=== PATIENT | female | born 1990 | race African-American/Black ===

== ENCOUNTER → 2016-09-02 | Day surgery (SDC) | payer OTHER ==
[~2016-09-02] MED LIST: PROTONIX PO; TRAMADOL HCL50 M1 PO
--- NOTE | ~2016-09-02 | OR ---
Unit #: [id number] #: [id number] Patient: CHE AC [id number] [facility] [address] [place], [place] [address] [id number] O MR#: [id number] NAME: CHE AC ROOM: Date of Procedure: 09/02/2016 Admission Date: 09/02/2016 Surgeon: Shubham Hanley M.D. : 1990 Attending Physician: Shubham Hanley M.D. Primary Care Physician: Primary Care Physician No OPERATIVE REPORT PREOPERATIVE DIAGNOSES Chronic cholecystitis, cholelithiasis. POSTOPERATIVE DIAGNOSIS Chronic cholecystitis, cholelithiasis. PROCEDURE PERFORMED Laparoscopic cholecystectomy. [employer] SUPERVISOR Bharathi Looney M.D. ANESTHESIA General endotracheal anesthesia. ESTIMATED BLOOD LOSS 20 mL. INDICATIONS FOR PROCEDURE Ms. Ac is a 26-year-old female, who has been having episodic right upper quadrant pain with nausea. Ultrasound revealed cholelithiasis with normal biliary ductal system. Liver chemistries were normal. DESCRIPTION OF PROCEDURE The patient admitted to [facility], positively identified, and transported to operating room, and after induction of general endotracheal anesthesia, she was prepped and draped in usual sterile fashion. A 5-mm infraumbilical incision made. Veress needle was placed and pneumoperitoneum was created. Then, a 5-mm trocar was placed. Laparoscope was introduced into peritoneal cavity under direct vision. The epigastric and lateral ports were placed. Gallbladder was grasped and elevated. Adhesions were stripped away from the infundibulum and the infundibulum was retracted laterally. [place] was dissected out clearly identifying the cystic duct, gallbladder, and cystic duct-common duct junction and the posteriorly placed cystic artery. The cystic duct was swept upwards and then a single clip was placed in the cystic duct as it entered the gallbladder. 3 clips were placed distally and the cystic duct was sharply divided. Posteriorly, the cystic duct was doubly clipped proximally and distally and divided. I then dissected the gallbladder at liver bed using cautery dissection. Once the gallbladder was freed up from its hepatic attachments, it was brought out through the epigastric port. There was good hemostasis. The clips were well positioned. A Unit #: [id number] #: [id number] Patient: STEPHAN,TIMNESHA neoClose device was used to close the epigastric fascial defect. The defect was airtight. There was no bleeding. I then reduced the pneumoperitoneum as I removed laparoscope and trocars. 0.5% Marcaine with epinephrine was infiltrated in each trocar site. The skin was closed with 4-0 Monocryl subcuticular closure and Dermabond skin adhesive. Sponges and needle counts were correct x3. The patient tolerated the procedure well and was transported to recovery in stable condition. Findings and postoperative instructions were discussed with her family. Dictated by... Brandon Galeano/krista TD: 09/02/2016 23:34 JOB #: [id number] OPERATIVE REPORT Page 1 of 1 X Shubham Hanley MD PROCEDURE OPERATIVE NOTE
[2016-09-02 07:10] LABS: BASOPHIL# 0.1 X10e3 (0-0.3); BASOPHIL% 0.7 % (0-2.5); EOSINOPHIL# 0.1 X10e3 (0-0.7); EOSINOPHIL% 1.5 % (0.0-7.0); HEMATOCRIT 37.4 % (35.0-45.0); HEMOGLOBIN 12.4 gm/dL (12.0-16.0); LYMPHOCYTE% 40.2 % (17.0-45.0); MEAN CELL VOLUME 102.2 FL (83-96); MEAN CORPUSCULAR HEMOGLOBIN 33.8 PG (28-34); MEAN CORPUSCULAR HGB CONC 33.1 g/dL (30-36); MONOCYTE# 0.6 X10e3 (0-1.0); MONOCYTE% 7.9 % (3.0-12.0); NEUTROPHIL# 3.7 X10e3 (1.5-7.1); NEUTROPHIL% 49.7 % (40-75); PLATELET COUNT 247 X10e3 (140-420); RED BLOOD COUNT 3.66 X10e (3.90-5.30); RED CELL DISTRIBUTION WIDTH 12.5 % (11.0-15.5); WHITE BLOOD COUNT 7.4 X10e3 (4.0-10.5)
[2016-09-02 07:15] LABS: DIFF IND NO
[2016-09-02 07:38] LABS: ALBUMIN SERUM 4.1 g/dL (3.5-5.0); BILIRUBIN,TOTAL 0.6 mg/dL (0.2-2.0); BUN/CREATININE RATIO 11.42; CALCIUM SERUM 9.4 mg/dL (8.4-10.2); CREATININE SERUM 0.7 mg/dL (0.6-1.4); GLOM FILT RATE Estimated 140.5 mL/min (>60); POTASSIUM 3.8 mmol/L (3.5-5.1); PROTEIN TOTAL SERUM 7.1 g/dL (6.0-8.3)
== END | disposition home or self-care (01) ==
LOC: CSUR 06:32
PROVIDERS: Specialist
DX: K80.10 Calculus of gallbladder with chronic cholecystitis without obstruction (principal); F17.210 Nicotine dependence, cigarettes, uncomplicated; Z87.440 Personal history of urinary (tract) infections; Z79.899 Other long term (current) drug therapy
CPT/HCPCS: 80053; 84703; 85025; 88304; J0330; J0690; J1100; J1885; J2250; J2270; J2405; J2710; J2765; J3010